=== PATIENT | male | born 1960 | race Caucasian/White ===

== ENCOUNTER 2017-09-22 10:19 | Emergency (ER) | payer BC ==
[2017-09-22 10:26] VITALS: BP 121/69; BMI 39.9
[2017-09-22] MEDS ORDERED: ADACEL TDaP IM ONE ×2 (10:31→10:32)
[2017-09-22] MEDS ORDERED: XYLOCAINE 1 % (PLAIN) ONE (10:47)
--- NOTE | 2017-09-22 10:51 | DR.EXTPAIN ---
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 HE IS ON BLOOD THINNER Self Treatment fo Chief Complaint: HAS PLACED 3 DRESSING OVER WOUND AND IT IS STILL BLEEDING - Source History Provided: Patient - Mode of arrival Mode of Arrival: Ambulatory - Timing Onset of Chief Complaint: 09/22/17 PMH - PMH Past Medical History: Yes Past Medical History: Diabetes, Hypertension Past Medical History Comment: SELMA On Xarelto for this Past Surgical History: Yes Surgical History: Ortho Surgery - Family History History of Family Medical Conditions: Yes Family Medical History: Diabetes Mellitus, [place], Hypertension - Social History Does patient currently use any type of tobacco product: No Have you used tobacco products in the last 12 months: No Type of Tobacco Use: None Does any household member use tobacco: No Alcohol Use: Rarely Do you use any recreational Drugs:: No Lives With: Family Lives Where: Home - infectious screening In the last 2 months have you had wt loss of >10#?: NO Have you had fever, night sweats or hemotysis?: No Have you traveled outside the country in the last 6 months?: No Isolation: Standard ROS - Review of Systems Constitutional: No Symptoms Reported Eyes: No Symptoms Reported ENTM: No Symptoms Reported Respiratoy: No Symptoms Reported Cardiovascular: No Symptoms Reported Gastrointestinal/Abdominal: No Symptoms Reported Genitourinary: No Symptoms Reported Neurological: No Symptoms Reported Musculoskeletal: No Symptoms Reported Integumentary: No Symptoms Reported Hematologic/Lymphatic: Easy Bleeding Endocrine: No Symptoms Reported PE - Vital Signs Vitals: Temperature 98.9 F Pulse Rate 97 Respiratory Rate 16 Blood Pressure 121/69 O2 Sat by Pulse Oximetry 98 - General Limitations: No Limitations General Appearance: Alert, In No Apparent Distress - Head Head Exam: Normal Inspection - Eyes Eye exam: Normal Appearance - ENT ENT Exam: Normal Exam - Neck Neck Exam: Normal Inspection - Respiratory Respiratory Exam: Normal Lung Sounds Bilat Respiratory Exam: Bilateral Clear to Auscultation - Cardiovascular Cardiovascular Exam: Irregular Rhythm - Abdominal Exam Abdominal Exam: Normal Inspection, Normal Bowel Sounds, Soft - Lower Extremities Upper Leg Exam: Other (3cm transverse linear well approx lac mid ant thigh, no active bleeding) Gait Exam: Observed and Normal - Neurological Neurological Exam: Alert, Oriented X3 - Psychiatric Psychiatric Exam: Normal Affect, Normal Mood ROR - Other Results Comments: tetanus given in ER today Procedures - Laceration/Wound Repair Right Thigh Wound Length (cm): 3 Wound's Depth, Shape: Superficial, Linear Wound Explored: clean Betadine Prep?: Yes Anesthesia: 1% Lidocaine Wound Debrided: minimal Wound Repaired With: sutures Suture Size/Type: 4:0, [place] Number of Sutures: 4 Layer Closure?: No - Diagnosis Discharge Problem: Laceration of thigh - Discharge Plan Disposition: 01 HOME, SELF-CARE Condition: Stable - Follow ups/Referrals Follow ups/Referrals: Robb Hernandez [Primary Care Provider] - 3 days - Instructions Instructions: Sutured Wound Care, Laceration Care, Adult Additional Instructions: sutures out 1 week. Return to ER if signs, symptoms of infection develop
[2017-09-22] MEDS ORDERED: NEOSPORIN OINT TOP ONE (11:47)
[2017-09-22] MEDS ORDERED: NEOSPORIN OINT ONE (11:48)
== END 2017-09-22 11:49 | disposition home or self-care (01) ==
LOC: ER 10:32
PROC: 0HQHXZZ Repair Right Upper Leg Skin, External Approach (ICD-10-PCS; principal; 2017-09-22)
DX: S71.111A Laceration without foreign body, right thigh, initial encounter (principal); W26.0XXA Contact with knife, initial encounter; Y92.9 Unspecified place or not applicable
CPT/HCPCS: 90471; 99282; J2001